=== PATIENT | female | born 1975 | race Caucasian/White ===

== ENCOUNTER 2021-12-19 09:29 | Outpatient (CLI) | payer BC | END 2021-12-19 09:30 | disposition home or self-care (01) | LOC: BICMRI 09:29 | PROVIDERS: ATTEND Internal Medicine Hematology & Oncology | DX: C50.211 Malignant neoplasm of upper-inner quadrant of right female breast (principal); Z15.01 Genetic susceptibility to malignant neoplasm of breast | CPT/HCPCS: A9577; C8908 ==

== ENCOUNTER 2023-01-04 09:31 | Outpatient (CLI) | payer BC | END 2023-01-04 09:32 | disposition home or self-care (01) | LOC: BICMRI 09:31 | PROVIDERS: ATTEND Internal Medicine Hematology & Oncology | DX: C50.211 Malignant neoplasm of upper-inner quadrant of right female breast (principal) | CPT/HCPCS: A9577; C8908 ==